=== PATIENT | male | born 1945 ===

== ENCOUNTER 2018-08-05 17:10 | Emergency (ER) | payer SELFPAY ==
[~2018-08-05] VITALS: Ht 172.7 cm; Wt 79.5 kg
[2018-08-05 17:27] VITALS: BP 157/88; Ht 172.7 cm; Wt 79.5 kg
[2018-08-05] MEDS ORDERED: PLAVIX75 MG (17:28)
== END 2018-08-05 18:39 | disposition left against medical advice (07) ==
LOC: D.ER 17:10
DX: M54.5 Low back pain (principal)